=== PATIENT | female | born 1955 | race Caucasian/White ===

== ENCOUNTER 2017-06-24 21:55 | Emergency (ER) | payer OTHER, SELFPAY ==
[2017-06-24 21:56] VITALS: BP 129/118; PULSE 124; RESP 18; TEMP 36.6; O2SAT 91; BMI 21.7
[2017-06-24 22:01] VITALS: BP 121/80; PULSE 114; RESP 20; O2SAT 93
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
[2017-06-24] MEDS: Diphth,Pertuss(Acell),Tet Vac 0.5 ML Vial IM (22:12)
[2017-06-24 23:15] VITALS: BP 130/98; PULSE 89; RESP 20; O2SAT 96
== END 2017-06-25 00:04 | disposition home or self-care (01) ==
LOC: ED 23:00
PROVIDERS: Emergency Provider Emergency Medicine
DX: S61.012A Laceration without foreign body of left thumb without damage to nail, initial encounter (principal); W23.0XXA Caught, crushed, jammed, or pinched between moving objects, initial encounter; Y93.9 Activity, unspecified; Y92.9 Unspecified place or not applicable; Y99.9 Unspecified external cause status; Z23 Encounter for immunization; I25.10 Atherosclerotic heart disease of native coronary artery without angina pectoris; F22 Delusional disorders; F41.9 Anxiety disorder, unspecified; Z72.0 Tobacco use; Z79.899 Other long term (current) drug therapy
CPT/HCPCS: 12001; 90471; 90715; 99285

== ENCOUNTER 2017-07-01 16:42 | Emergency (ER) | payer OTHER, SELFPAY ==
[2017-07-01 16:43] VITALS: PULSE 114; RESP 25; TEMP 36.7
--- NOTE | 2017-07-01 17:00 | ED.VISSUMM ---
- ER Visit Summary Date of Service: 07/01/17 Chief Complaint: Suture removal History of Present Illness: The patient is a 61 F presenting for wound check. Patient removed her sutures at home prior to arrival. She wants to have the wound checked to make sure she got all of the stitches out. She has had no fever. No redness or drainage. She is intoxicated on arrival. No other complaints. Physical Examination: Vitals are stable. Patient is afebrile. Alert no acute distress. HEENT exam is unremarkable. Lungs are clear and equal bilaterally. Heart is regular rate and rhythm. Extremities left distal thumb wound intact. No erythema or drainage. No sutures visualized. AFROM Skin is warm and dry. No focal neurologic deficit. Remainder of exam is unremarkable. Emergency Department Course and Treatment: Wound care was discussed. She is advised to watch for signs of infection. She was discharged with a sober ride. Advised to follow-up with primary care physician. Disposition: Discharge home Impression: Wound check left thumb This note was generated with [employer] dictation software. It may contain incorrect words, spelling, and punctuation that were not noted in review of the chart prior to signing ED Disposition - Plan for ED Patient: Chief Complaint: Wound Check Referrals: Care Physician,No Primary [Primary Care Provider] -
--- NOTE | 2017-07-01 17:03 | ED.DEP ---
ED Disposition - Plan for ED Patient: Chief Complaint: Wound Check Instructions: ED Wound Check Sutr Remove No Infec Referrals: Care Physician,No Primary [Primary Care Provider] -
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
== END 2017-07-01 17:13 | disposition home or self-care (01) ==
LOC: ED 17:06
PROVIDERS: Emergency Provider Emergency Medicine
DX: S69.92XD Unspecified injury of left wrist, hand and finger(s), subsequent encounter (principal); X58.XXXD Exposure to other specified factors, subsequent encounter; F10.129 Alcohol abuse with intoxication, unspecified; Z79.899 Other long term (current) drug therapy
CPT/HCPCS: 99282

== ENCOUNTER 2017-07-26 18:09 | Emergency (ER) | payer OTHER, SELFPAY ==
[2017-07-26 18:10] VITALS: PULSE 83; RESP 18; TEMP 36.8; O2SAT 93; BMI 22.0
--- NOTE | 2017-07-26 18:49 | ED.RN ---
PER EMS PT STATES I WANT TO FROM ALL THE PAIN. PUT ME OUT OF MY MISERY. WHEN THIS RN QUESTIONED PT, PT STATES NO, I'M NOT SUICIDAL. BUT IF I WANT TO I HAVE ENOUGH MEDICATIONS I CAN GET IT DONE AND I KNOW HOW TO DO IT.
[2017-07-26 19:25] VITALS: RESP 18
[2017-07-26 20:00] VITALS: RESP 18
--- NOTE | 2017-07-26 20:18 | ED.RN ---
PT STATES SHE WANTS TO LEAVE. PT TOLD SHE MUST FIND A SOBER RIDE. PT CURRENTLY SITTING ON SIDE OF BED MAKING PHONE CALLS
[2017-07-26] MEDS: Haloperidol Lactate 5 MG/ML Vial 10 MG IM (20:59)
[2017-07-26] MEDS: LORazepam 2 MG/ML Syringe 1 MG IM (20:59)
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
[2017-07-26 22:25] VITALS: BP 109/88; RESP 20
--- NOTE | 2017-07-26 22:26 | ED.RN ---
BET TAKER AND IN TO PICKUP PATIENT. SIGNED FOR PATIENT RELEASE OF RESPONSIBILITY
== END 2017-07-26 22:27 | disposition home or self-care (01) ==
PROVIDERS: Emergency Provider Emergency Medicine
DX: F10.129 Alcohol abuse with intoxication, unspecified (principal); Y90.8 Blood alcohol level of 240 mg/100 ml or more; M54.9 Dorsalgia, unspecified; G89.29 Other chronic pain; I25.10 Atherosclerotic heart disease of native coronary artery without angina pectoris; Z72.0 Tobacco use; Z79.899 Other long term (current) drug therapy
CPT/HCPCS: 36415; 80320; 96372; 99284; G0480

== ENCOUNTER → 2019-03-31 10:09 | Outpatient (CLI) | payer OTHER, MEDICAID, SELFPAY ==
[2019-01-23 10:13] VITALS: BMI 22.0
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
== END ==
DX: Z78.0 Asymptomatic menopausal state (principal)
CPT/HCPCS: 77080

== ENCOUNTER 2019-07-30 17:34 | Emergency (ER) | payer OTHER, MEDICAID, SELFPAY ==
[2019-01-23 10:13] VITALS: BMI 22.0
[2019-07-30] VITALS (8 sets, daily range): BP systolic 103–138; BP diastolic 88–107; PULSE 79–101; RESP 14–20; TEMP 37.3; O2SAT 90–97; BMI 23.4
--- NOTE | 2019-07-30 17:50 | EKG12_ITS ---
Test Reason : Blood Pressure : / mmHG Vent. Rate : 094 BPM Atrial Rate : 094 BPM P-R Int : 162 ms QRS Dur : 094 ms QT Int : 374 ms P-R-T Axes : 066 028 053 degrees QTc Int : 467 ms Normal sinus rhythm Normal ECG Confirmed by KRISTIN GILLETTE ([id number]), editor producer ABIDA GIBBS ([id number]) on 08/03/2019 11:07:23 AM Referred By: Gena Morse Confirmed By:KRISTIN GILLETTE
--- NOTE | 2019-07-30 17:50 | CT_ITS ---
STUDY: CT BRAIN WITHOUT CONTRAST REASON FOR EXAM: Female, 64 years old. Confusion. Altered mental status. Agitated. History of EtOH, seizures and hypertension. RADIATION DOSAGE (If Supplied By Facility): CTDIvol = ( 60.81 ) mGy, DLP = ( 1089.89 ) mGycm TECHNIQUE: Transaxial CT imaging of the brain was performed without administration of intravenous contrast material. Individualized dose optimization techniques were used for this CT. COMPARISON: June 10, 2013. FINDINGS: Normal soft tissue structures. Normal calvarium. Normal size ventricles and extra-axial spaces for the patient''s age. Normal white matter tracts of the cerebral hemispheres. Normal basal ganglia and thalami. Normal brainstem. Normal cerebellum. There is no intracranial hemorrhage. There are no findings of an acute ischemic infarction. There is near complete opacification left maxillary sinus. Minimal mucoperiosteal reaction is seen in the right maxillary sinus. CT/Brain/Head without Contrast IMPRESSION: 1. No evidence of acute intracranial or calvarial abnormality. There is no major interval change. 2. Worsening sinusitis. Electronically Signed: Jayy Teague DO at 18:31 EDT Tel [phone], Service support ,
[2019-07-30 18:02] LABS: Bacteria 0 SEEN /hpf (None Seen); Mucous, Urine 0 SEEN /hpf (<or=2+); Red Blood Cells-Urine 0 SEEN /hpf (0-5); Squamous Epithelial Cells - UA 0 SEEN /hpf (5-10); White Blood Cells 0 SEEN /hpf (0-5)
[2019-07-30 18:07] LABS: Absolute Lymphocyte Count 1.64 X10^3/uL (0.83-4.51); Absolute Neutrophil Count 2.3 X10^3/uL (2.0-7.7); Basophil# 0.02 X10^3/uL; Basophil% 0.4 % (0-1); Eosinophil# 0.07 X10^3/uL; Eosinophils% 1.5 % (0-5); Hematocrit 43.6 % (37-47); Hemoglobin 14.5 g/dL (12.0-15.0); Lymphocyte # 1.64 X10^3/ul (4.0); Lymphocyte % 35.5 % (19-41); Mean Corp Hgb Conc 33.3 g/dL (32-36); Mean Corpuscular Hgb 31.9 pg (27.0-32.0); Mean Corpuscular Volume 95.8 fL (81-99); Mean Platelet Vol. 8.7 fl (6.2-12.0); Monocyte# 0.54 X10^3/uL; Monocyte% 11.7 % (0-10); NRBC Flagged by Analyzer 0 % (0-5); Neutrophil # 2.34 X10^3/uL (2.7-7.7); Neutrophil % 50.7 % (47-70); Platelet Count 149 K/mm3 (150-450); RBC Distribution Width CV 12.7 % (11.6-14.6); RBC Distribution Width SD 44.8 fl (35.1-43.9); Red Blood Count 4.55 M/mm3 (4.2-5.4); White Blood Count 4.6 K/mm3 (4.4-11.0)
[2019-07-30 18:07] LABS: Color, Urine Straw (Yellow); Glucose, Dipstick Normal (Normal); Ketone-Dipstick Negative (Negative); Leukocyte Esterase-Dipstick Negative /ul (Negative); Nitrite-Dipstick Negative (Negative); Occult Blood-Urine Negative /ul (Negative); Protein-Dipstick Negative (Negative); Urine Bilirubin Dipstick Negative (Negative); Urine Clarity Clear (Clear); Urine Urobilinogen Normal (Normal)
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
[2019-07-30 18:25] LABS: Anion Gap 7 (5-15); BUN 18 mg/dL (7-18); BUN/Creat Ratio 29.4 RATIO (10-20); Calcium,Total 9.2 mg/dL (8.5-10.1); Chloride 102 mmol/L (98-107); Creatinine, Serum 0.61 mg/dL (0.55-1.02); EST Glomerular Filtration Rate 105 mL/min (>60); Est Glom Filt Rate - Afr Amer 127 mL/min (>60); Estimated Creatinine Clearance 81.51 ml/min; Glucose 96 mg/dL (74-106); Potassium 3.7 mmol/L (3.5-5.1); Sodium Level 139 mmol/L (136-145)
[2019-07-30 18:30] LABS: Amphetamine Urine VISTA NEGATIVE (<1000 ng/mL); Barbiturate Urine VISTA NEGATIVE (< 200 ng/mL); Benzodiazepine Urine VISTA NEGATIVE (< 200 ng/mL); Cocaine Urine VISTA NEGATIVE (< 300 ng/mL); Ecstacy Urine VISTA NEGATIVE (< 500 ng/mL); Methadone Urine VISTA NEGATIVE (< 300 ng/mL); PCP Urine VISTA NEGATIVE (< 25 ng/mL); THC Urine VISTA NEGATIVE (< 50 ng/mL); Vista UDS pH Range 5
[2019-07-30] MEDS: Ziprasidone IM 20 MG/ML VIAL 10 MG IM ×2 (19:03→20:16)
--- NOTE | 2019-07-30 19:13 | ED.RN ---
pt continually attempts to climb out of bed. unable to redirect pt. pt yelling, grabbing at staff and attempting to bite. pt inappropriately touching herself. attempted again to redirect pt. pt screaming and thrashing. order for alannah received out and given im . pt continued to attempt to climb out of bed and yelling at staff. order recieved for 4 point restraints until able to calm pt down. pt significant other jian aware of current situation
--- NOTE | 2019-07-30 22:40 | ED.DEP ---
ED Disposition - Plan for ED Patient: Instructions: ED INTOXICATION Alcohol Referrals: Cassi Damon,Alisha Tejeda [Primary Care Provider] -
[2019-07-31 00:21] VITALS: RESP 14
[2019-07-31 01:34] VITALS: RESP 14
[2019-07-31 03:16] VITALS: RESP 14
[2019-07-31 05:00] VITALS: BP 126/73; PULSE 82; RESP 14; O2SAT 99
[2019-07-31 06:10] VITALS: RESP 14
[2019-07-31 07:35] VITALS: BP 110/58; PULSE 74; RESP 16; O2SAT 96; O2SAT 98
== END 2019-07-31 07:37 | disposition home or self-care (01) ==
LOC: ED 18:31
PROVIDERS: Emergency Provider Emergency Medicine; Referring Provider Nurse Practitioner Family
DX: F10.129 Alcohol abuse with intoxication, unspecified (principal); Y90.8 Blood alcohol level of 240 mg/100 ml or more; I25.10 Atherosclerotic heart disease of native coronary artery without angina pectoris; Z79.82 Long term (current) use of aspirin
CPT/HCPCS: 70450; 80048; 80307; 80320; 81001; 84484; 85025; 93005; 96372; 99284; G0480; J3486

== ENCOUNTER → 2024-06-16 | Outpatient (CLI) | payer MEDICARE, SELFPAY ==
[2024-06-16 12:45] LABS: Absolute Lymphocyte Count 1.19 X10^3/uL (0.83-4.51); Absolute Neutrophil Count 2.6 X10^3/uL (2.0-7.7); Basophil# 0.02 X10^3/uL; Basophil% 0.5 % (0-1); Eosinophil# 0.06 X10^3/uL; Eosinophils% 1.4 % (0-5); Hematocrit 43.1 % (37-47); Hemoglobin 14.8 g/dL (12.0-15.0); Lymphocyte # 1.19 X10^3/ul (0.83-4.51); Lymphocyte % 27.9 % (19-41); Mean Corp Hgb Conc 34.3 g/dL (32-36); Mean Corpuscular Hgb 33.1 pg (27.0-32.0); Mean Corpuscular Volume 96.4 fL (81-99); Mean Platelet Vol. 9.1 fl (6.2-12.0); Monocyte# 0.38 X10^3/uL; Monocyte% 8.9 % (0-10); NRBC Flagged by Analyzer 0 % (0-5); Neutrophil % 61.1 % (47-70); Platelet Count 157 K/mm3 (150-450); RBC Distribution Width CV 12.2 % (11.6-14.6); RBC Distribution Width SD 43.2 fl (35.1-43.9); Red Blood Count 4.47 M/mm3 (4.2-5.4); White Blood Count 4.3 K/mm3 (4.4-11.0)
[2024-06-16 13:36] LABS: ALB/GLOB Ratio 1.7 RATIO (0.9-2.4); AST(SGOT) 27 U/L (<=31); Alanine Aminotransfer ALT/SGPT 20 U/L (<=34); Albumin, Serum 4.6 g/dL (3.4-4.8); Alkaline Phosphatase 86 U/L (35-104); Anion Gap 11 (5-15); BUN 14 mg/dL (4-19); BUN/Creat Ratio 21.5 RATIO (10-20); Calcium,Total 9.7 mg/dL (7.6-11.0); Carbon Dioxide 26.8 mmol/L (21.0-32.0); Chloride 102 mmol/L (98-108); Creatinine, Serum 0.66 mg/dL (0.70-1.20); EST Glomerular Filtration Rate 96 (>60); Globulin 2.6 g/dL (2.2-4.2); Glucose 105 mg/dL (70-99); Potassium 4.8 mmol/L (3.3-5.1); Protein, Total 7.2 g/dL (5.9-8.4); Sodium Level 140 mmol/L (133-145); Total Bilirubin 0.58 mg/dL (0.00-1.30)
== END | disposition home or self-care (01) ==
LOC: VSLAB 10:25
PROVIDERS: PCP Family Medicine; Visit Provider Family Medicine
DX: R06.00 Dyspnea, unspecified (principal)
CPT/HCPCS: 36415; 80053; 85025